=== PATIENT | male | born 1935 | race Caucasian/White ===

== ENCOUNTER 2020-02-10 13:21 | Outpatient (REF) | payer MEDICARE, SELFPAY ==
--- NOTE | 2020-02-10 12:43 | SKI_PTH ---
PATIENT: PEPE VILLEGAS LOC: [facility] U#:[id number] AGE/SX: 84/M ROOM: RE02/10/[address]: Vikram Puag DO : 1935 BED: DIS: 02/10/2020 SPEC #: [id number] RECD: 02/10/20 16:23 STATUS: KAHTLEEN REGloria #: [id number] MISTY: 02/10/20 12:[address]: Vikram Puga DEPT: Surgical Specimen RECD BY: Ester Mendez Tissues: 1 - SKIN BIOPSY(SHAVE/PUNCH) 2 - SKIN BIOPSY(SHAVE/PUNCH) Procedures: SKIN LEVEL 4 Comments: [id number]
== END 2020-02-10 13:41 ==
LOC: LBN 13:21
PROVIDERS: Visit Provider Otolaryngology Otolaryngology/Facial Plastic Surgery
DX: C44.41 Basal cell carcinoma of skin of scalp and neck (principal); D04.62 Carcinoma in situ of skin of left upper limb, including shoulder
CPT/HCPCS: 88305

== ENCOUNTER 2020-12-14 11:33 | Outpatient (REF) | payer MEDICARE, SELFPAY ==
--- NOTE | 2020-12-14 09:55 | SKI_PTH ---
PATIENT: PEPE VILLEGAS LOC: [facility] U#:[id number] AGE/SX: 85/M ROOM: RE12/14/[address]: DAHLIA Quesada : 1935 BED: DIS: 12/14/2020 SPEC #: [id number] RECD: 12/14/20 17:57 STATUS: KATHLEEN REGloria #: [id number] MISTY: 12/14/20 09:[address]: Jake Azul DEPT: Surgical Specimen RECD BY: Ester Mendez ENTERED: 12/14/20 17:57 SP TYPE: SKI OTHR DR: Pepe Richardson Tissues: 1 - SKIN BIOPSY(SHAVE/PUNCH) Procedures: SKIN LEVEL 4 Comments: [id number]
== END 2020-12-14 11:34 | disposition home or self-care (01) ==
LOC: LBN 11:33
PROVIDERS: PCP Nurse Practitioner Family; Visit Provider Physician Assistant
DX: C44.612 Basal cell carcinoma of skin of right upper limb, including shoulder (principal)
CPT/HCPCS: 88305